=== PATIENT | male | born 1980 | race Caucasian/White ===

== ENCOUNTER 2020-11-12 19:26 | Emergency (ER) | payer OTHER ==
[2020-11-12] MEDS ORDERED: Acetaminophen 500 MG Tab PO STA (19:50)
[2020-11-12] MEDS ORDERED: Lidocaine 2% Viscous Solution 15 ML Cup PO STA (19:50)
[2020-11-12] MEDS ORDERED: Ibuprofen 800 MG Tab PO STA (19:50)
--- NOTE | 2020-11-12 19:53 | EDM.PDOC ---
ED HPI GENERAL MEDICAL PROBLEM - General Stated Complaint: BURN Time Seen by Provider: 11/12/20 19:55 Source of Information: Reports: Patient History Limitations: Reports: No Limitations - History of Present Illness INITIAL COMMENTS - FREE TEXT/NARRATIVE: Patient presented to the ED because of a burn on his rt hand. He was frying a fish and the oil splattered on his rt hand. He sustained ist and second degree burn on the right thumb. Left Hand Pain Score (Numeric/FACES): 9 - Related Data Allergies Allergy/AdvReac Type Severity Reaction Status Date / Time No Known Allergies Allergy Verified 11/12/20 19:47 ED ROS GENERAL - Review of Systems Review Of Systems: See Below Constitutional: Reports: No Symptoms HEENT: Reports: No Symptoms Respiratory: Reports: No Symptoms Cardiovascular: Reports: No Symptoms Endocrine: Reports: No Symptoms GI/Abdominal: Reports: No Symptoms : Reports: No Symptoms Musculoskeletal: Reports: No Symptoms Skin: Reports: Other (erythema) Neurological: Reports: No Symptoms Psychiatric: Reports: No Symptoms ED EXAM, SKIN/RASH Exam: See Below Exam Limited By: No Limitations General Appearance: Alert, No Apparent Distress Ears: Normal External Exam, Normal Canal Nose: Normal Inspection, Normal Mucosa, No Blood Throat/Mouth: Normal Inspection, Normal Lips, Normal Teeth Head: Atraumatic, Normocephalic Neck: Normal Inspection, Supple, Non-Tender, Full Range of Motion Respiratory/Chest: No Respiratory Distress, Lungs Clear, Normal Breath Sounds Cardiovascular: Normal Peripheral Pulses, Regular Rate, Rhythm GI/Abdominal: Normal Bowel Sounds, Soft, Non-Tender Back Exam: Normal Inspection Extremities: Normal Inspection, Normal Range of Motion Neurological: Alert, Oriented, CN II-XII Intact Psychiatric: Normal Affect, Normal Mood Course - Vital Signs Text/Narrative:: Viscous lidocaine applied on rt thumb Ibuprofen 800 mg PO x1 Tylenol 1000 mg PO x1 Last Recorded V/S: Last Vital Signs Temp 37.0 C 11/12/20 19:48 Pulse 83 11/12/20 19:48 Resp 16 11/12/20 19:48 BP 164/114 H 11/12/20 19:48 Pulse Ox 98 11/12/20 19:48 - Orders/Labs/Meds Meds: Medications Discontinued Medications Generic Name Dose Route Start Last Admin Trade Name Erin PRN Reason Stop Dose Admin Acetaminophen 1,000 mg 11/12/20 19:50 11/12/20 19:56 Acetaminophen 500 Mg Tab PO 11/12/20 19:51 1,000 mg NOW STA Administration Ibuprofen 800 mg 11/12/20 19:50 11/12/20 19:56 Ibuprofen 800 Mg Tab PO 11/12/20 19:51 800 mg NOW STA Administration Lidocaine HCl 15 ml 11/12/20 19:50 11/12/20 19:56 Lidocaine 2% Viscous Solution 15 Ml Cup PO 11/12/20 19:51 15 ml NOW STA Administration Departure - Departure Time of Disposition: 20:15 Disposition: Home, Self-Care 01 Condition: Good Clinical Impression: Thermal injury - Discharge Information Instructions: Burn Care, Adult, [id number] Additional Instructions: please read discharge instructions on thermal injury or burn Take ibuprofen 800 mg with tylenol 1000 mg every 8 hours as needed for pain Apply an antibiotic ointment 3 times daily for 7 days Follow up as needed Sepsis Event Note (ED) - Evaluation Sepsis Screening Result: No Definite Risk - Focused Exam Vital Signs: Vital Signs Temp Pulse Resp BP Pulse Ox 11/12/20 19:48 37.0 C 83 16 164/114 H 98
[2020-11-12] MEDS ORDERED: Lidocaine 2% Viscous Solution 15 ML Cup PO ONE (20:29)
== END 2020-11-12 20:37 | disposition home or self-care (01) ==
LOC: FB.ED 19:26
DX: T23.211A Burn of second degree of right thumb (nail), initial encounter (principal); X10.2XXA Contact with fats and cooking oils, initial encounter; Y93.G3 Activity, cooking and baking
CPT/HCPCS: 99283; A9270-GY